=== PATIENT | female | born 1970 | race Two or more races ===

== ENCOUNTER 2021-12-22 08:33 | Emergency (ER) | payer OTHER ==
[~2021-12-22] VITALS: Ht 172.7 cm; Wt 77.1 kg
--- NOTE | 2021-12-22 09:02 | NUR ---
To ER bed 9, requesting certain antibiotic for cellulitis. diagnosed 2 days ago, aaox3, breathing even and non labored, awiting md orders
[2021-12-22] MEDS ORDERED: CIPR500T5 PO (09:31)
[2021-12-22 09:49] VITALS: BP 128/70
--- NOTE | 2021-12-22 09:49 | NUR ---
Patient discharged to home in stable condition. Written and verbal after care instructions given. Patient verbalizes understanding of instruction.
== END 2021-12-22 09:50 | disposition home or self-care (01) ==
LOC: ER 08:44
DX: L03.115 Cellulitis of right lower limb (principal); Z79.899 Other long term (current) drug therapy